=== PATIENT | female | born 1955 | race Caucasian/White ===

== ENCOUNTER → 2022-01-03 12:43 | Outpatient (CLI) | payer MEDICARE, OTHER, SELFPAY ==
--- NOTE | 2022-01-03 12:51 | DI.MRI.S_ITS ---
PROCEDURE: MR SHOULDER RT WO CON INDICATIONS: Primary osteoarthritis, right shoulder TECHNIQUE: Noncontrast oblique coronal T2 fast spin echo with fat saturation, oblique sagittal T1 spin echo and T2 fast spin echo with fat saturation, axial T1 spin echo and T2 fast spin echo with fat saturation through the shoulder. COMPARISON: [facility], CR, XR SHOULDER 2+ VIEWS RIGHT, 12/28/2021, 13:33. [facility], CT, CT CHEST ABDOMEN PELVIS WITH CONTRAST, 01/03/2022, 16:29. FINDINGS: Image quality: Excellent. Rotator cuff: There is partial-thickness tear of the distal supraspinatus tendon involving the footprint (series 8, image 12) and moderate tendinosis. There is moderate tendinosis of the infraspinatus and subscapularis tendons without discrete tendon tear. Sagittal images demonstrate rotator cuff muscle atrophy. Bones and bursae: No bone marrow contusions or fractures. Mild acromioclavicular and glenohumeral joint degeneration. The acromion demonstrates conventional anatomy, without an os acromiale. There is small subacromial-subdeltoid fluid consistent with mild bursitis. Capsule and soft tissues: There are degenerative labral fraying involving the anterior and inferior labrum. The long head of the biceps tendon appears thickened with heterogeneous signal consistent with severe tendinosis. There is fluid in the tendon sheath of the long head of the biceps tendon consistent with tenosynovitis. The rotator interval appears normal, without fibrosis. The coracohumeral ligament is normal in thickness. IMPRESSION: 1. Partial-thickness tear of the distal supraspinatus tendon with superimposed moderate tendinosis. 2. Moderate tendinosis of the infraspinatus and subscapularis tendons. 3. Severe tendinosis of the long head of the biceps tendon. 4. Severe tendinosis and tenosynovitis of the long head of the biceps tendon. 5. Degenerative anterior and inferior labral fraying. 6. Mild subacromial-subdeltoid bursitis. Dictated by: Yousuf Syed M.D. on 01/04/2022 at 8:59 Approved by: Yousuf Syed M.D. on 01/04/2022 at 9:10
== END ==
PROVIDERS: Family Provider Family Medicine; PCP Student in an Organized Health Care Education/Training Program; Referring Provider Orthopaedic Surgery; Visit Provider Orthopaedic Surgery
DX: M75.111 Incomplete rotator cuff tear or rupture of right shoulder, not specified as traumatic (principal); M19.011 Primary osteoarthritis, right shoulder; M75.51 Bursitis of right shoulder; M65.821 Other synovitis and tenosynovitis, right upper arm
CPT/HCPCS: 73221